=== PATIENT | female | born 1985 | race Two or more races ===

== ENCOUNTER 2018-04-21 09:57 | Outpatient (CLI) | payer OTHER ==
[~2018-04-21 09:57] MED LIST: TYLENOL32 MG/ML
== END 2018-04-21 10:09 | disposition home or self-care (01) ==
LOC: SONOGRAMA 09:57
DX: E03.8 Other specified hypothyroidism (principal); I10 Essential (primary) hypertension; M54.5 Low back pain; Z01.810 Encounter for preprocedural cardiovascular examination; E55.9 Vitamin D deficiency, unspecified; E66.8 Other obesity; D50.8 Other iron deficiency anemias; D50.9 Iron deficiency anemia, unspecified; D51.1 Vitamin B12 deficiency anemia due to selective vitamin B12 malabsorption with proteinuria

== ENCOUNTER → 2018-05-15 | Emergency (ER) | payer OTHER | END | disposition left against medical advice (07) | LOC: ER 19:57 | DX: Z53.20 Procedure and treatment not carried out because of patient's decision for unspecified reasons (principal) ==

== ENCOUNTER 2019-08-30 08:06 | Emergency (ER) | payer OTHER ==
[~2019-08-30] VITALS: Ht 170.2 cm; Wt 120.2 kg
[2019-08-30] MEDS ORDERED: HYZAAR 50-12.51 EACH PO (08:29)
[2019-08-30] MEDS ORDERED: TOPROL XL25 M1 PO (08:29)
[2019-08-30] MEDS ORDERED: MAXFE CAPLET1 EACH PO (08:30)
[2019-08-30] MEDS ORDERED: CLONAZEPAM0.5 M1 PO (08:32)
== END 2019-08-30 10:47 | disposition home or self-care (01) ==
LOC: ER 08:06
DX: R00.2 Palpitations (principal); D64.89 Other specified anemias

== ENCOUNTER 2021-10-20 09:18 | Emergency (ER) | payer OTHER ==
[~2021-10-20] VITALS: Ht 337.8 cm; Wt 118.8 kg
[~2021-10-20 09:18] MED LIST changes: +CLONAZEPAM0.5 M1 PO; +HYZAAR 50-12.51 EACH PO; +MAXFE CAPLET1 EACH PO; +TOPROL XL25 M1 PO
[2021-10-20] MEDS ORDERED: HEMATEX PO (09:40)
== END 2021-10-20 12:03 | disposition home or self-care (01) ==
LOC: ER 09:18
DX: N92.0 Excessive and frequent menstruation with regular cycle (principal)

== ENCOUNTER 2025-07-12 10:33 | Outpatient (CLI) | payer OTHER ==
[~2025-07-12 10:33] MED LIST changes: +HEMATEX PO
== END 2025-07-12 10:45 | disposition home or self-care (01) ==
LOC: TOM 10:33
DX: L04.0 Acute lymphadenitis of face, head and neck (principal)